=== PATIENT | female | born 1960 | race Caucasian/White ===

== ENCOUNTER 2017-12-28 16:58 | Outpatient (CLI) | payer MEDICARE | END 2017-12-28 16:59 | disposition home or self-care (01) | LOC: BICMAMMO 16:58 | PROVIDERS: ATTEND Family Medicine | DX: Z12.31 Encounter for screening mammogram for malignant neoplasm of breast (principal) | CPT/HCPCS: 77063; 77067 ==

== ENCOUNTER 2018-12-12 11:57 | Outpatient (CLI) | payer MEDICARE ==
--- NOTE | 2018-12-12 13:47 | CT ---
CT CHEST WITHOUT CONTRAST: 12/12/2018 PROVIDED CLINICAL HISTORY: Nicotine dependence. FINDINGS: The heart, pericardium, and great vessels are suboptimally evaluated in the absence of IV contrast bu t demonstrate an unremarkable unenhanced CT appearance, with the exception of minimal vascular calcif ication. There is no evidence for thoracic lymph node enlargement, with limitations evaluating for hilar adeno vivek, given lack of IV contrast. The airway appears patent and of normal caliber. There is no significant pulmonary parenchymal opacity. No pleural fluid, pleural thickening, or pneumothorax. Peripherally calcified bilateral breast implants are noted. The visualized portions of the upper abd omen demonstrate an unremarkable unenhanced CT appearance. The osseous structures demonstrate no concerning lytic or blastic lesions. IMPRESSION: 1. No significant pulmonary parenchymal opacity is evident. 2. Minimal vascular calcification. POS: C
== END 2018-12-12 11:58 | disposition home or self-care (01) ==
LOC: CT 11:57
PROVIDERS: ATTEND Family Medicine
DX: F17.210 Nicotine dependence, cigarettes, uncomplicated (principal); I70.90 Unspecified atherosclerosis
CPT/HCPCS: G0297

== ENCOUNTER 2019-01-02 13:43 | Outpatient (CLI) | payer MEDICARE ==
--- NOTE | 2019-01-02 15:19 | BD ---
DEXA BONE DENSITY STUDY: Date: 01/02/19 HISTORY: 58-year-old postmenopausal female for screening for osteoporosis. FINDINGS: Lumbar Spine: BMD (g/cm2) L1 0.893 T-Score: -0.9 L2 0.987 T-Score: -0.4 L3 1.045 T-Score: -0.4 L4 0.949 T-Score: -1.0 L1-L4 0.969 T-Score: -0.7 Left Femoral Neck: 0.815 T-Score: -0.3 Total Femur: 0.936 T-Score: 0.0 IMPRESSION: Normal bone mineral density. POS: [facility]
== END 2019-01-02 13:44 | disposition home or self-care (01) ==
LOC: BICMAMMO 13:43
PROVIDERS: ATTEND Family Medicine
DX: Z12.31 Encounter for screening mammogram for malignant neoplasm of breast (principal); Z13.820 Encounter for screening for osteoporosis; Z78.0 Asymptomatic menopausal state
CPT/HCPCS: 77063; 77067; 77080

== ENCOUNTER 2020-03-27 08:48 | Outpatient (CLI) | payer MEDICARE ==
--- NOTE | 2020-03-27 09:31 | MMO ---
Bilateral MAMMO Bilat Screen [facility]. CLINICAL HISTORY: Patient is 59 years old and is seen for screening. The patient has no family history of breast cancer. The patient has no personal history of cancer. The patient has a history of Implants in 1985. VIEWS: The views performed were: bilateral craniocaudal implant displaced; bilateral craniocaudal with tomosynthesis; bilateral mediolateral oblique implant displaced; and bilateral mediolateral oblique with tomosynthesis. FILMS COMPARED: The present examination has been compared to prior imaging studies performed at [facility] on 12/28/2017 and 01/02/2019, and at [facility] on 10/27/2011 and 04/10/2015. This study has been interpreted with the assistance of computer-aided detection. MAMMOGRAM FINDINGS: The breasts are heterogeneously dense, which could obscure a lesion on mammography. Bilateral implants are stable. There are no suspicious masses, suspicious calcifications, or new areas of architectural distortion. IMPRESSION: THERE IS NO MAMMOGRAPHIC EVIDENCE OF MALIGNANCY. A ROUTINE FOLLOW-UP MAMMOGRAM IN 1 YEAR IS RECOMMENDED. THE RESULTS OF THIS EXAM WERE SENT TO THE PATIENT. ACR BI-RADS Category 2 - Benign finding MAMMOGRAPHY NOTE: 1. A negative mammogram report should not delay a biopsy if a dominant of clinically suspicious mass is present. 2. Approximately 10% to 15% of breast cancers are not detected by mammography. 3. Adenosis and dense breasts may obscure an underlying neoplasm. Reported by: CONSUELO COURTNEY MD Electonically Signed: [id number]
== END 2020-03-27 08:49 | disposition home or self-care (01) ==
LOC: BICMAMMO 08:48
PROVIDERS: ATTEND Family Medicine
DX: Z12.31 Encounter for screening mammogram for malignant neoplasm of breast (principal); Z98.82 Breast implant status
CPT/HCPCS: 77063; 77067

== ENCOUNTER 2024-10-26 08:23 | Outpatient (CLI) | payer OTHER | END 2024-10-26 08:24 | disposition home or self-care (01) | LOC: NM 08:23 | PROVIDERS: ATTEND Internal Medicine | DX: R25.1 Tremor, unspecified (principal) | CPT/HCPCS: 78803; A9584 ×2 ==